=== PATIENT | female | born 2000 | race Caucasian/White ===

== ENCOUNTER 2021-08-18 06:19 | Emergency (ER) | payer BC ==
[2021-08-18] MEDS ORDERED: METOCLOPRAMIDE 10 MG TABLET PO STA (06:43)
[2021-08-18] MEDS ORDERED: ACETAMINOPHEN 325 MG TABLET PO STA (06:43)
[2021-08-18] MEDS ORDERED: ALBUTEROL NEB 2.5 MG/3 ML INH STA (06:43)
--- NOTE | 2021-08-18 06:53 | ED Physician Documentation ---
History of Present Illness - Stated complaint Stated Complaint: SOA/HEADACHE/N - Chief complaint Chief Complaint: Resp - History obtained from History obtained from: Patient - Additonal information Additional information: 21-year-old woman presents with headache on waking this morning as well as nausea and chest tightness and shortness of breath. headache is 5/10, frontal nonradiating, aching, gradual onset, without exac/relieving features. She states that she has had asthma-like symptoms in the past but has no formal diagnosis. Patient felt normal yesterday and is endorsing nonproductive cough that started this morning. Denies fever or chills. Denies leg swelling. PERC negative. Review of Systems Ten Systems: 10 systems reviewed and negative Constitutional: denies: Fever, Chills Cardiac: reports: Other (chest tightness) Respiratory: reports: Dyspnea, Cough Neurologic: reports: Headache PD PAST MEDICAL HISTORY - Present Medications Home Medications: Ambulatory Orders Medication Instructions Recorded Confirmed Venlafaxine ER [Effexor ER] 75 mg PO QID 08/18/21 08/18/21 lamoTRIgine [LaMICtal] 100 mg PO QID 08/18/21 08/18/21 - Allergies Allergies/Adverse Reactions: Allergies Allergy/AdvReac Type Severity Reaction Status Date / Time Penicillins Allergy Rash Verified 08/18/21 06:28 PD ED PE NORMAL - Vitals Vital signs reviewed: Yes - General General: Alert and oriented X 3, No acute distress, Well developed/nourished - HEENT HEENT: Atraumatic, PERRL, EOMI - Neck Neck: Supple, no meningeal sign - Cardiac Cardiac: RRR - Respiratory Respiratory: No respiratory distress, Clear bilaterally, Other (BL scant end expiratory wheezing) - Abdomen Abdomen: Non tender, Non distended - Derm Derm: Normal color, Warm and dry - Extremities Extremities: No edema - Neuro Neuro: Alert and oriented X 3, 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 Scant end expiratory wheezing heard on lung auscultation. Symptoms managed with Tylenol, Reglan, albuterol. Return precautions given. Patient will follow up with a primary doctor. Departure - Departure Clinical Impression: Wheezing, Headache, Nausea Condition: Good Instructions: ED Headache Tension Follow-Up: Payal Guerra PA-C [Provider Admit Priv/Credential] - Lilibeth Sandy MD [Provider Admit Priv/Credential] - Davey Guerrero DO [Provider Admit Priv/Credential] - Comments: You were seen in the emergency department and treated with albuterol, Tylenol, and Reglan. Please follow-up with a primary doctor for further testing. Return to the emergency department you have any new or worsening symptoms or other concerns.
[2021-08-18 08:19] VITALS: BP 129/83
== END 2021-08-18 08:19 | disposition home or self-care (01) ==
LOC: ED 06:19
DX: R06.2 Wheezing (principal); R05.9 Cough, unspecified; R51.9 Headache, unspecified; R11.0 Nausea; R07.89 Other chest pain
CPT/HCPCS: 94640; 94664; 99283; A9270

== ENCOUNTER 2021-10-17 01:38 | Emergency (ER) | payer BC ==
--- NOTE | 2021-10-17 02:12 | ED Physician Documentation ---
PD HPI DYSPNEA - Stated complaint Stated Complaint: SOA - Chief complaint Chief Complaint: Resp - History obtained from History obtained from: Patient - History of Present Illness Timing - onset: How many days ago (3) Timing - details: Gradual onset Improved by: Rest Worsened by: Exertion Associated symptoms: Cough (productive), Wheezing. No: Fever, Hemoptysis Recently seen: Not recently seen - Additional information Additional information: c/o 3 days of dyspnea, productive cough, chest tight/constricted, wheezing. She is COVID vaccinated. 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 : None HEENT: None Psych: Depression, Bipolar disorder Musculoskeletal: None Derm: None - Past Surgical History Past Surgical History: No - Present Medications Home Medications: Ambulatory Orders Medication Instructions Recorded Confirmed Venlafaxine ER [Effexor ER] 150 mg PO QID 08/18/21 10/17/21 lamoTRIgine [LaMICtal] 75 mg PO QID 08/18/21 10/17/21 Albuterol Sulf [Ventolin Hfa 1 - 2 puffs INH Q4HR PRN #18 gm 10/17/21 Inhaler] predniSONE [Deltasone] 40 mg PO DAILY 4 Days #8 tablet 10/17/21 - Allergies Allergies/Adverse Reactions: Allergies Allergy/AdvReac Type Severity Reaction Status Date / Time Penicillins Allergy Rash Verified 10/17/21 01:50 - Social History Does the pt smoke?: No Smoking Status: Never smoker Does the pt drink ETOH?: No Does the pt have substance abuse?: No - Immunizations Immunizations are current?: Yes - POLST Patient has POLST: No PD ED PE NORMAL - Vitals Vital signs reviewed: Yes - General General: Alert and oriented X 3, No acute distress, Well developed/nourished - Cardiac Cardiac: RRR, No murmur - Respiratory Respiratory: No respiratory distress PD ED PE EXPANDED - Respiratory Respiratory: Wheezing (expiratory wheeze bilaterally), Decreased breath sounds Results - Vitals Vitals: Oxygen O2 Source Room air - Rads (name of study) chest xray Radiology: Prelim report reviewed, See rad report PD MEDICAL DECISION MAKING - ED course Complexity details: reviewed results, re-evaluated patient, considered differential, d/w patient ED course: productive cough with wheezing and chest constriction, normal cxr. Afebrile. Presentation and results are consistent with bronchitis with bronchospasm. She is given duoneb and reports good relief with this medication. On reexam, lungs are clear to auscultation bilaterally with good air movement and trace end- expiratory residual wheeze Departure - Departure Disposition: 01 Home, Self Care Clinical Impression: Bronchitis with bronchospasm Condition: Good Instructions: ED Bronchitis Asthmatic Prescriptions: Albuterol Sulf [Ventolin Hfa Inhaler] 1 - 2 puffs INH Q4HR PRN #18 gm PRN Reason: Shortness Of Air/Wheezing predniSONE [Deltasone] 40 mg PO DAILY 4 Days #8 tablet Comments: Your chest xray is normal. Based on your symptoms, I suspect you have an upper respiratory infection (which would include bronchitis) that is causing bronchospasm (a spasming of the airways, which, in turn, causes wheezing and shortness of breath). Prescriptions for an inhaler (albuterol) and a steroid (prednisone) have been electronically submitted to [facility] pharmacy in [place]. Based on your response to the breathing treatment in the emergency department, I suspect you will only need the inhaler. Use it every 4 hours as needed for difficulty breathing/wheezing, or chest tightness. If the symptoms are not controlled by the albuterol alone, start the steroid as prescribed (but continue the inhaler as directed). Discharge Date/Time: 10/17/21 03:54
[2021-10-17] MEDS: IPRATROPIUM/ALBUTEROL 3 ML NEB INH STA (02:34)
[2021-10-17 03:54] VITALS: BP 104/76
--- NOTE | 2021-10-17 08:01 | XRAY Report ---
PROCEDURE: Chest 2 View X-Ray INDICATIONS: dyspnea, cough TECHNIQUE: 2 view(s) of the chest. COMPARISON: None. FINDINGS: Surgical changes and devices: None. Lungs and pleura: No pleural effusions or pneumothorax. Lungs are clear. Mediastinum: Mediastinal contours are normal. Heart size is normal. Bones and chest wall: No suspicious bony abnormalities. Soft tissues appear unremarkable. IMPRESSION: No evidence acute pulmonary process. Findings are concordant with preliminary interpretation provided by [facility]. Reviewed by: Frandy Hansen MD on 10/17/2021 8:00 AM [facility] Approved by: Frandy Hansen MD on 10/17/2021 8:00 AM PST Station ID: [id number]
== END 2021-10-17 03:54 | disposition home or self-care (01) ==
LOC: ED 01:38
DX: J47.0 Bronchiectasis with acute lower respiratory infection (principal); J20.9 Acute bronchitis, unspecified; R07.9 Chest pain, unspecified
CPT/HCPCS: 94640; 94664; 99283

== ENCOUNTER 2022-01-22 17:11 | Emergency (ER) | payer BC ==
[2022-01-22 17:17] VITALS: BP 112/77
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
== END 2022-01-22 18:01 | disposition home or self-care (01) ==
LOC: ED 17:11
DX: T24.012A Burn of unspecified degree of left thigh, initial encounter (principal); T24.011A Burn of unspecified degree of right thigh, initial encounter; X10.0XXA Contact with hot drinks, initial encounter; F17.200 Nicotine dependence, unspecified, uncomplicated
CPT/HCPCS: 99281; 99282